=== PATIENT | male | born 1990 | race Two or more races ===

== ENCOUNTER 2022-10-08 02:55 | Emergency (ER) | payer SELFPAY ==
[~2022-10-08] VITALS: Ht 180.3 cm; Wt 100.0 kg
[2022-10-08] MEDS ORDERED: BENZ-227 PO (06:02)
[2022-10-08 06:03] VITALS: BP 119/68
== END 2022-10-08 06:21 | disposition home or self-care (01) ==
LOC: EMS 02:56
DX: J40 Bronchitis, not specified as acute or chronic (principal); Z98.890 Other specified postprocedural states
CPT/HCPCS: 71045; 99283